=== PATIENT | female | born 1995 | race Caucasian/White ===

== ENCOUNTER → 2019-03-09 10:32 | Outpatient (CLI) | payer BC, MEDICAID, SELFPAY | PROVIDERS: Visit Provider Internal Medicine Cardiovascular Disease | DX: O24.419 Gestational diabetes mellitus in pregnancy, unspecified control (principal); R06.09 Other forms of dyspnea; Z3A.30 30 weeks gestation of pregnancy; Z87.891 Personal history of nicotine dependence; R42 Dizziness and giddiness; R00.2 Palpitations | CPT/HCPCS: 93270 ==

== ENCOUNTER → 2019-03-21 09:44 | Outpatient (CLI) | payer BC, MEDICAID, SELFPAY ==
--- NOTE | 2019-03-21 09:46 | CA_ITS ---
PROCEDURE: 2-D M-mode and color Doppler study INDICATIONS FOR THE TEST: Chest pain COPD Heart Murmur Tobacco SmokingEX Palpitations+ Fatigue Syncope Edema Hypertension Diabetes Mellitus+ Rheumatic Fever SOB [place]UR[place]ADO+Obesity+Hyperlipidemia Family History HD Additional History 30 WKS PATIENT INFORMATION HEIGHT:66 WEIGHT:231 GENDER: Female B/P:121/73 2-D/M-MODE INTERPRETATION: 2-D MEASUREMENTS OBSERVED VALUES IN CMS Right Ventricular Dimension (RVDd) 2.4 Interventricular Septum (Thickness)(IVsd) 1.0 Left Ventricular Internal Dimensions(LVIDd) 4.8 Left Ventricular Posterior Wall (Thickness)(LVPWd) 0.9 Aortic Root 3.0 Aortic Cusp Separation 2.1 Left Atrial Dimensions (LAD) 3.9 2D 1. Left atrium is normal size, left ventricle is normal size, there is no concentric left ventricular hypertrophy, visually estimated ejection fraction 55% with no regional wall motion abnormality. 2. The right atrium and right ventricle are normal size and contractility. 3. The aortic, mitral and tricuspid valvular grossly normal. 4. The pulmonic valve is poorly visualized. 5. No significant pericardial effusion noted. DOPPLER INTERROGATION: Doppler interrogation of the aortic, mitral and tricuspid valvular presence of mild mitral and tricuspid regurgitation, tricuspid regurgitation jet velocity is inadequate for calculation of the right ventricular systolic pressure, diastolic parameters are within normal range. CONCLUSION: 1. Normal left ventricular size, preserved left ventricular systolic function, visually estimated ejection fraction 55% with no regional wall motion abnormality, diastolic parameters are within normal range. 2. Mild mitral and tricuspid regurgitation of no hemodynamic significance. 3. No significant pericardial effusion noted.
== END ==
PROVIDERS: Visit Provider Internal Medicine Cardiovascular Disease
DX: O24.419 Gestational diabetes mellitus in pregnancy, unspecified control (principal); R00.2 Palpitations; R06.09 Other forms of dyspnea; R42 Dizziness and giddiness; Z3A.30 30 weeks gestation of pregnancy; Z87.891 Personal history of nicotine dependence
CPT/HCPCS: 93306